=== PATIENT | female | born 2000 | race Asian ===

== ENCOUNTER 2022-06-22 12:56 | Emergency (ER) | payer OTHER, SELFPAY ==
[2022-06-22 13:05] VITALS: BP 154/91; PULSE 98; RESP 18; TEMP 36.8; O2SAT 98; BMI 24.6
--- NOTE | 2022-06-22 13:37 | ED_ITS ---
HPI - Nausea/Vomiting/Diarrhea General Chief complaint: Nausea/Vomiting Stated complaint: Vomiting, diarrhea Time Seen by Provider: 06/22/22 13:14 History of Present Illness HPI Narrative: This 21-year-old female comes in reporting symptoms of nausea, vomiting, and some diarrhea. She states that she had alcohol last night and now has these symptoms as results. She does also report a headache. She arrives with normal vital signs. She does not have significant abdominal pain. There is a very mild tenderness in the upper epigastric region. Related Data Home Medications Medication Instructions Recorded Confirmed No Known Home Medications 06/22/22 06/22/22 Allergies Allergy/AdvReac Type Severity Reaction Status Date / Time No Known Drug Allergies Allergy Verified 06/22/22 13:07 Review of Systems Status of ROS: Reports: 10 or more systems reviewed and unremarkable except as noted in History and below Narrative: Constitutional: No fevers, no weight gain or loss. Eyes: No discharge. No vision changes. HENT: No congestion, no sore throat, no ear pain. Cardiovascular: No chest pain, no palpitations. Respiratory: No shortness of breath, no wheezes, no cough. Gastrointestinal: Nausea, vomiting, and some diarrhea. Genitourinary: No dysuria, no hematuria. Musculoskeletal: Normal range of motion. Skin: No rashes, no pruritis. Neurological: No dizziness, weakness, sensory change, speech change. Endo/Heme/Allergies: No bruising or bleeding. No polydipsia. Pysch: no suicidality, no anxiety, no insomnia. All other systems reviewed and are negative. Exam Narrative: Exam Narrative: Constitutional: Well-developed, well-nourished, no acute distress. HEENT: Normocephalic, atraumatic. Neck: Normal range of motion. Nontender. Supple. Heart: Regular. No murmurs. Normal rate. Intact distal pulses. Lungs: Clear to auscultation. No chest discomfort. No wheezes, rhonchi, or rales. Abdomen: Normal bowel sounds. Nontender. No rebound tenderness. Genitalia: Deferred. Back: No midline tenderness. Normal range of motion. Extremities: Normal range of motion. No injury. Skin: Intact. No rash. Warm. No erythema or pallor. Neurologic: No altered sensation. No weakness. Alert and oriented. Psychiatric: No suicidality. No anxiety or depression. No insomnia. Nursing notes and vitals signs are reviewed. Const: Vital Signs, click to edit/add: Vital Signs - 24 hr 06/22/22 13:05 Temperature 98.2 F Pulse Rate [Right Pulse Oximeter] 98 Respiratory Rate 18 Blood Pressure [Ri ght Upper Arm] 154/91 H Pulse Oximetry 98 Oxygen Delivery Me thod Room Air Course Vital Signs Vital signs: Initial Vital Signs Temperature 98.2 F 06/22/22 13:05 Temperature Source Temporal Artery Scan 06/22/22 13:05 Pulse Rate 98 06/22/22 13:05 Respiratory Rate 18 06/22/22 13:05 Blood Pressure 154/91 H 06/22/22 13:05 Blood Pressure Mean 112 06/22/22 13:05 Blood Pressure Position Sitting 06/22/22 13:05 Pulse Oximetry 98 06/22/22 13:05 Oxygen Delivery Method 06/22/22 13:05 Vital Signs Temperature 98.2 F 06/22/22 13:05 Pulse Rate 98 06/22/22 13:05 Respiratory Rate 18 06/22/22 13:05 Blood Pressure 154/91 H 06/22/22 13:05 Pulse Oximetry 98 06/22/22 13:05 Oxygen Delivery Method 06/22/22 13:05 Temperature 98.2 F 06/22/22 13:05 Pulse Rate 98 06/22/22 13:05 Respiratory Rate 18 06/22/22 13:05 Blood Pressure 154/91 H 06/22/22 13:05 Pulse Oximetry 98 06/22/22 13:05 Oxygen Delivery Method 06/22/22 13:05 MDM - Nausea/Vomiting/Diarrhea MDM Narrative Medical decision making narrative: This patient has rather normal exam but is not feeling well after having too much alcohol last evening. I did discuss lab and imaging options but these declined in a process of shared decision making. An IV was established where she received a L of normal saline, 4 mg of Zofran, and Toradol 30 mg. This brought great relief to her symptoms. She feels okay to return home. Discharge Plan Discharge Clinical Impression: Nausea & vomiting Patient Disposition: Home, Self-Care Condition: Improved Additional Instructions: Increase diet and activity as tolerated. Follow up with MD or return if worsening. Prescriptions: No Action No Known Home Medications Follow Up/Referrals: Provider,Not a Local [Primary Care Provider] - Stand Alone Forms: [email or web address] Info Instructions
[2022-06-22] MEDS: 0.9 % SODIUM CHLORIDE 1000 ml 1,000 ML IV (14:07)
[2022-06-22] MEDS: ONDANSETRON 2 MG/ML inj 4 MG IVP (14:07)
[2022-06-22] MEDS: KETOROLAC 30 MG/ML inj IVP (14:07)
[2022-06-22 15:09] VITALS: BP 122/72; PULSE 86; RESP 18; O2SAT 99
== END 2022-06-22 15:10 | disposition home or self-care (01) ==
PROVIDERS: Emergency Provider Emergency Medicine Emergency Medical Services
DX: R11.2 Nausea with vomiting, unspecified (principal)
CPT/HCPCS: 96374; 96375; 99283; 99284; J1885; J2405; J7030